=== PATIENT | male | born 1975 | race Caucasian/White ===

== ENCOUNTER → 2018-02-11 | Outpatient (CLI) | payer BC ==
--- NOTE | 2018-02-11 09:17 | USB ---
Reason for exam: clinical finding. Indicated problem(s): palpable abnormality in the right breast. Physical Findings: Nurse Summary: 1cm nodule at right nipple, movable (nurse dw). US Breast RT Right complete breast ultrasound includes all four quadrants, the retroareolar region and axilla. Finding demonstrates no cystic or solid lesion seen. These results were verbally communicated with the patient and result sheet given to the patient on 02/11/18. ASSESSMENT: Negative, BI-RAD 1 RECOMMENDATION: Clinical management of the right breast. Manage patient on a clinical basis.
== END | disposition home or self-care (01) ==
LOC: RADUSWWP 06:46
PROVIDERS: ATTEND Family Medicine
DX: N64.4 Mastodynia (principal)